=== PATIENT | female | born 1990 | race Hispanic/Latino ===

== ENCOUNTER → 2018-04-09 | Outpatient (CLI) | payer BC ==
--- NOTE | 2018-04-09 11:39 | Diagnostic Imaging Report ---
EXAM: US ABDOMEN COMPLETE DATE: 04/09/2018:01 AM INDICATION: Epigastric pain COMPARISON: None TECHNIQUE: Transverse and longitudinal rausch scale and color doppler sonographic images of the upper abdomen were obtained. FINDINGS: LIVER 12.4 cm in the right midclavicular line. Normal echogenicity, normal contour, no masses. SPLEEN 10 cm in maximum diameter. Normal echogenicity. Hypoechoic lesion in the lower pole measures 1 cm. GALLBLADDER No stones, sludge, wall-thickening or pericholecystic fluid. Negative sonographic Mike's sign. BILE DUCTS No intra nor extra-hepatic biliary dilation. Common bile duct measures 0.2 cm PANCREAS: Visualized portions are normal. RIGHT KIDNEY: 9.7 cm Echogenicity: Normal Collecting System: No hydronephrosis Stones: None Cyst/Mass: None LEFT KIDNEY: 8.6 cm Echogenicity: Normal Collecting System: No hydronephrosis Stones: None Cyst/Mass: None VESSELS: Aorta: Visualized portions are within normal size limits Inferior Vena Cava: Visualized portions are normal Main Portal Vein: 0.7 cm, normal size with hepatopetal flow. FREE FLUID: None IMPRESSION: 1 cm hypoechoic lesion in the lower pole of the spleen is likely related to prior infectious or inflammatory process particularly in a patient of this age. Definitive characterization with multiphase MRI of the abdomen is suggested. Otherwise unremarkable abdominal ultrasound. Signed by: Dr. Tobias Hatfield M.D. on 04/09/2018 11:35 AM
== END ==
LOC: US 09:47
PROVIDERS: ATTEND Internal Medicine Gastroenterology
DX: R10.13 Epigastric pain (principal); Z68.24 Body mass index [BMI] 24.0-24.9, adult
CPT/HCPCS: 76700